=== PATIENT | female | born 1990 | race American Indian/Alaskan Native ===

== ENCOUNTER 2017-12-10 09:31 | Emergency (ER) | payer MEDICAID ==
[2017-12-10 10:06] VITALS: BP 112/96
[2017-12-10 10:52] LABS: Basophils % (Auto) 0.5 % (0.0-1.8); Eosinophils % (Auto) 0.1 % (0.0-4.3); Hematocrit 37.5 % (30.3-42.9); Hemoglobin 12.9 gm/dl (10.1-14.3); Lymphocytes % (Auto) 12.8 % (13.4-35.0); Mean Corpuscular HGB Conc 34 % (30-34); Mean Corpuscular Hemoglobin 33 pg (28-32); Mean Corpuscular Volume 95 fl (79-97); Monocytes # (Auto) 0.2 K/mm3 (0.0-0.8); Monocytes % (Auto) 2.5 % (0.0-7.3); Platelet Count 300 K/mm3 (140-440); Red Blood Count 3.95 M/mm3 (3.65-5.03); Red Cell Distribution Width 13.7 % (13.2-15.2)
[2017-12-10 11:14] LABS: Alanine Aminotransferase 16 units/L (7-56); Albumin 4.5 g/dL (3.9-5); BUN/Creatinine Ratio 16; Blood Urea Nitrogen 11 mg/dL (7-17); Calcium 9.7 mg/dL (8.4-10.2); Hemolysis Index 9
[2017-12-10] MEDS ORDERED: TORADOL IM ONE (11:44)
[2017-12-10] MEDS ORDERED: ZOFRAN ODT PO ONE (11:44)
[2017-12-10] MEDS ORDERED: BENTYL IM ONE ×2 (11:44→11:48)
[2017-12-10] MEDS ORDERED: TORADOL ONE (11:48)
[2017-12-10] MEDS ORDERED: ZOFRAN ODT ONE (11:48)
--- NOTE | 2017-12-10 11:53 | Emergency Department Report ---
Vomiting/Diarrhea - HPI Chief Complaint: Nausea/Vomiting/Diarrhea Stated Complaint: /ABD PAIN/VOMITING Time Seen by Provider: 12/10/17 11:37 Duration: Today Severity: moderate Nausea/Vomiting Severity: Mild Diarrhea Severity: Mild Pain Location: Generalized Pain Severity: Mild Symptoms: Yes Watery Diarrhea, No Bloody diarrhea, No Fever, No Able to Tolerate Fluids, No Recent Unusual Foods, No Recent Untreated Water, No Recent use of Antibiotics, No Family w/ Similar Symptoms, No Contacts w/ Similar Symptoms, No Rash, No Hematuria ED Review of Systems ROS: Stated complaint: /ABD PAIN/VOMITING Other details as noted in HPI Comment: All other systems reviewed and negative ED Past Medical Hx - Social History Smoking Status: Unknown if ever smoked Substance Use Type: None - Medications Home Medications: Home Medications Medication Instructions Recorded Confirmed Last Taken Type metroNIDAZOLE [Flagyl] 500 mg PO BID #14 tablet 02/14/13 Unknown Rx Ciprofloxacin HCl [Cipro] 500 mg PO BID #14 tablet 07/01/13 Unknown Rx Tamsulosin [Flomax] 0.4 mg PO QDAY #5 cap 07/01/13 Unknown Rx HYDROcodone/APAP 5-325 [[place] 1 each PO Q6HR PRN #20 tablet 08/07/14 Unknown Rx 5-325 mg TAB] Naproxen [Naprosyn TAB] 500 mg PO BID #30 tablet 08/07/14 Unknown Rx Promethazine [Phenergan TAB] 25 mg PO Q6H PRN #20 tablet 08/07/14 Unknown Rx Dicyclomine [Bentyl] 20 mg PO QID #12 tablet 12/10/17 Unknown Rx Diphenoxylate/Atropine [Lomotil] 1 tab PO Q4H PRN #10 tablet 12/10/17 Unknown Rx Ondansetron [Zofran Odt] 4 mg PO Q8HR PRN #10 tab.rapdis 12/10/17 Unknown Rx Vomiting Diarrhea Exam - Exam General: Vital signs noted. No distress. Alert and acting appropriately. HEENT: Yes Moist Mucous Membranes, No Pharyngeal Erythema, No Pharyngeal Exudates, No Rhinorrhea, No Conjuctival Injection, No Frontal Tenderness, No Maxillary Tenderness Neck: No Adenopathy, No Rigidity Lungs: Yes Clear Lung Sounds, Yes Good Air Exchange, No Wheezes, No Stridor, No Cough, No Nasal Flaring, No Retractions, No Use of Accessory Muscles Heart exam: Regular: Yes, Murmur: No, Tachycardia: No Abdomen: Tenderness: No, Peritoneal Signs: No, Distention: No, Hyperactive Bowel sounds: No Skin exam: Rash: No, Edema: No, Normal turgor: Yes Neurologic: Alert and oriented, no deficits. Patient seems anxious Musculoskeletal: Unremarkable. ED Course Vital Signs 12/10/17 09:58 Temperature 97.8 F Pulse Rate 64 Blood Pressure 112/96 O2 Sat by Pulse 95 Oximetry ED Medical Decision Making - Lab Data Result diagrams: 12/10/17 10:34 12/10/17 10:34 - Medical Decision Making Patient's vital signs A studies were within normal limits. Patient was given meds for symptomatic relief and will be discharged home. Critical care attestation.: If time is entered above; I have spent that time in minutes in the direct care of this critically ill patient, excluding procedure time. ED Disposition Clinical Impression: Viral gastroenteritis Disposition: DC-01 TO HOME OR SELFCARE Is pt being admited?: No Does the pt Need Aspirin: No Condition: Stable Instructions: Gastroenteritis (ED), Acute Nausea and Vomiting (ED) Referrals: PRIMARY CARE, [Primary Care Provider] - 3-5 Days Forms: Work/School Release Form(ED) Time of Disposition: 11:53
== END 2017-12-10 12:05 | disposition home or self-care (01) ==
LOC: ED 09:31
DX: A08.4 Viral intestinal infection, unspecified (principal)
CPT/HCPCS: 36415; 80053; 85025; 96372; 99283; J0500; J1885; Q0162